=== PATIENT | female | born 1970 | race Caucasian/White ===

== ENCOUNTER → 2021-07-25 | Outpatient (CLI) | payer MEDICARE ==
[2021-07-27 07:11] LABS: LUPUS REFLEX INTERPRETATION Comment: (.); PROTEIN S, TOTAL 136 % (60-150); PT 1:1NP 10.1 sec (9.1-12.0); THROMBIN TIME 17.9 sec (0.0-23.0)
== END ==
LOC: LAB 13:06
PROVIDERS: Internal Medicine
DX: I73.9 Peripheral vascular disease, unspecified (principal); I26.99 Other pulmonary embolism without acute cor pulmonale; E72.19 Other disorders of sulfur-bearing amino-acid metabolism
CPT/HCPCS: 36415; 81240; 81241; 82232; 85240; 85305; 85384; 85415; 85611